=== PATIENT | male | born 1990 | race Caucasian/White ===

== ENCOUNTER 2020-05-03 12:43 | Emergency (ER) | payer SELFPAY ==
[2020-05-03 12:57] VITALS: BP 152/97; PULSE 96; RESP 14; TEMP 36.4; O2SAT 96; BMI 40.8
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
--- NOTE | 2020-05-03 13:15 | XR_ITS ---
PROCEDURE: XR ANKLE RT MIN 3V CLINICAL INDICATION: pt fell Pain COMPARISON: No exams were available for comparison FINDINGS: No fracture or dislocation. No lytic or blastic change. There is normal mineralization. The joint spaces are well-preserved. No significant degenerative/arthritic changes. No erosive changes evident. Other findings:None. IMPRESSION: No acute findings. Dictated by: Dwaine Miranda MD 05/03/2020 14:23 Dwaine Miranda MD in [place] 05/03/2020 14:23
[2020-05-03 14:38] VITALS: BP 150/90; PULSE 91; RESP 16; TEMP 36.7
== END 2020-05-03 14:48 | disposition home or self-care (01) ==
PROVIDERS: Emergency Provider Nurse Practitioner Family
DX: S93.601A Unspecified sprain of right foot, initial encounter (principal); S93.401A Sprain of unspecified ligament of right ankle, initial encounter; W17.89XA Other fall from one level to another, initial encounter; Y92.89 Other specified places as the place of occurrence of the external cause; F17.210 Nicotine dependence, cigarettes, uncomplicated
CPT/HCPCS: 73610; 73630; 99202; G0463

== ENCOUNTER 2020-07-13 14:52 | Emergency (ER) | payer SELFPAY ==
[2020-07-13 14:52] VITALS: BP 169/88; PULSE 55; RESP 16; TEMP 36.6; O2SAT 98; BMI 35.3
[2020-07-13 14:58] VITALS: BMI 38.4
--- NOTE | 2020-07-13 15:01 | HMH.EDGENADL ---
ED Disposition Clinical Impression: Renal colic on left side Disposition: Home, Self-Care Condition on Discharge: Good Additional Instructions: Use urine strainer. Use ibuprofen, with food, for pain. Use Zofran as needed for nausea. Drink plenty of clear fluids. Follow-up with urology/PCP. Return immediately if any intractable nausea/vomiting, worsening pain, fever/chills, generalized malaise, or other new concerning symptoms. Prescriptions: Ondansetron [Zofran 4mg ODT] 4 mg PO TIDP PRN #12 tab PRN Reason: nausea Transmission Status: Received by [facility] Referrals: PCP,No [Primary Care Provider] - - Critical Care Critical Care Time: No Attestation: On , the high probability of a clinically significant, sudden or life threatening deterioration of the following system(s) required my full and direct attention, intervention and personal management. The time I documented below is in addition to time spent performing reported procedures but includes the following listed in this critical care notation. Medical Decision Making - Medical Records Medical records reviewed: Yes: I reviewed the patient's medical records. - Petros Inquiry Pt receiving controlled substance: No Vital Signs: 07/13/20 14:52 07/13/20 16:05 Temperature 97.8 F Temperature Source Oral Pulse Rate 65 Pulse Rate [Radial] 55 L Respiratory Rate 16 Blood Pressure 140/96 H Blood Pressure [Right Arm] 169/88 H Blood Pressure Mean 111 Blood Pressure Mean [Right Arm] 115 Blood Pressure Position [Right Arm] Sitting 02 Sat by Pulse Oximetry 98 98 Oxygen Delivery Method Room Air - Lab Data Lab Results 07/13/20 14:57: Urine Color Yellow, Urine Appearance Clear, Urine pH 6.0, Ur Specific [place] 1.025, Urine Protein Negative, Urine Glucose (UA) Negative, Urine Ketones Negative, Urine Blood 3+, Urine Nitrate Negative, Urine Bilirubin Negative, Urine Urobilinogen 0.2, Ur Leukocyte Esterase Negative, Urine RBC 10-20, Urine WBC 3-5, Ur Squamous Epith Cells 3-5, Urine Bacteria None 07/13/20 15:20: WBC 12.0 H, RBC 5.79, Hgb 17.1, Hct 51.2, MCV 88.4, MCH 29.5, MCHC 33.3, RDW 13.3, Plt Count 174, MPV 8.0, Neut % (Auto) 65.0, Lymph % (Auto) 26.5, [place] % (Auto) 5.0, Eos % (Auto) 2.6, Baso % (Auto) 0.9, Neut # (Auto) 7.8, Lymph # (Auto) 3.2, [place] # (Auto) 0.6, Eos # (Auto) 0.3, Baso # (Auto) 0.1 07/13/20 15:20: Sodium 139, Potassium 4.2, Chloride 107, Carbon Dioxide 28, Anion Gap 8.2, BUN 10, Creatinine 1.20, Estimated Creat Clear 154, Estimated GFR 73, Est GFR ( Amer) 88, Glucose 101 H, Calcium 9.2, Total Bilirubin 0.4, AST 35, ALT 45, Alkaline Phosphatase 110, Total Protein 7.1, Albumin 4.1, Globulin 3.0, Albumin/Globulin Ratio 1.4 07/13/20 15:20: Lipase 112 Result diagrams: 07/13/20 15:20 07/13/20 15:20 Orders (Tests/Meds): ED MEDICATIONS Generic Name Dose Route Start Last Admin Trade Name Freq PRN Reason Stop Dose Admin Lactated Ringer's 1,000 mls @ 999 mls/hr 07/13/20 15:30 07/13/20 15:40 Lactated Ringer's 1000 Ml Bag IV 07/13/20 16:30 999 mls/hr .Q1H1M ASHLEY Administration Discontinued Medications Generic Name Dose Route Start Last Admin Trade Name Freq PRN Reason Stop Dose Admin Ketorolac Tromethamine 15 mg 07/13/20 15:29 07/13/20 15:42 Ketorolac 30mg/Ml Vial IV 07/13/20 15:30 15 mg ONCE ONE Administration Ondansetron HCl 4 mg 07/13/20 15:29 07/13/20 15:40 Ondansetron 4mg/2ml Vial IV 07/13/20 15:30 4 mg ONCE ONE Administration Medical Decision Narrative: Patient 29-year-old male presents with suspected left renal colic. Patient has history of stones and states this feels exactly the same as stones has had in the past without complications of passing. No infection. No fever. No excessive vomiting. Patient given Toradol, Zofran, and a fluid bolus here in the ER. Basic labs to be checked to ensure no renal insufficiency, leukocytosis, or other significant abnormal
[2020-07-13 15:04] LABS: Microscopic, Urine URINE MICROSCOPIC (MICROSCOPIC)
[2020-07-13 15:06] LABS: Appearance,Urine CLEAR (Clear); Bilirubin,Urine Negative (Negative); Blood, Urine 3+ (Negative); Color,Urine YELLOW (Yellow); Glucose,Urine (UA) Negative (Negative); Ketones,Urine Negative (Negative); Leukocyte Esterase,Urine Negative (Negative); Nitrate,Urine Negative (Negative); Protein,Urine Negative (Negative); Specific Gravity, Urine 1.025 (1.005-1.030); Urobilinogen,Urine 0.2 EU/dl (0.2)
[2020-07-13 15:32] LABS: Basophils # 0.1 K/mm3 (0-0.2); Basophils % 0.9 % (0.1-2.0); Eosinophils # 0.3 K/mm3 (0.0-0.4); Eosinophils % 2.6 % (0.1-12.0); Hematocrit 51.2 % (42.0-52.0); Hemoglobin 17.1 g/dL (14.1-18.0); Lymphocytes # 3.2 K/mm3 (0.7-4.5); Lymphocytes % 26.5 % (10-50); Mean Corpuscular HGB Conc 33.3 g/dL (31.8-35.4); Mean Corpuscular Hemoglobin 29.5 pg (27.0-31.2); Mean Corpuscular Volume 88.4 fl (80-94); Monocytes # 0.6 K/mm3 (0.1-1.0); Neutrophils # 7.8 K/mm3 (1.8-7.8); Platelet Count 174 K/mm3 (142-424); Red Blood Count 5.79 M/mm3 (4.60-6.20); Red Cell Distribution Width 13.3 % (11.5-17.5)
[2020-07-13 15:37] LABS: Alanine Aminotransferase 45 U/L (12-78); Albumin Level 4.1 g/dl (3.5-5.0); Albumin/Globulin Ratio 1.4 (1.1-1.8); Alkaline Phosphatase 110 U/L (38-126); Anion Gap 8.2 mEq/L (5-15); Aspartate Amino Transferase 35 U/L (17-59); Bilirubin,Total 0.4 mg/dl (0.2-1.3); Blood Urea Nitrogen 10 mg/dl (9-20); Calcium 9.2 mg/dl (8.4-10.2); Carbon Dioxide 28 mmol/L (22.0-30.0); Chloride 107 mmol/L (98-107); Creatinine Clearance Estimated 154 mL/min (50-200); Estimated Glomerular Filt Rate 73 ml/min (>60); GFR (African American) 88 ML/MIN (>60); Glucose 101 mg/dl (74-100); Potassium 4.2 mmoL/L (3.5-5.1); Sodium 139 mmol/L (136-145); Total Protein,Serum 7.1 g/dl (6.3-8.2)
[2020-07-13 15:45] LABS: Lipase 112 U/L (23-300)
[2020-07-13 16:05] VITALS: BP 140/96; PULSE 65; O2SAT 98
[2020-07-13 16:57] VITALS: BP 155/89; PULSE 89; RESP 16; TEMP 36.6; O2SAT 98
== END 2020-07-13 16:58 | disposition home or self-care (01) ==
PROVIDERS: Emergency Provider Emergency Medicine
DX: N23 Unspecified renal colic (principal); Z87.442 Personal history of urinary calculi; F17.210 Nicotine dependence, cigarettes, uncomplicated
CPT/HCPCS: 80053; 81001; 83690; 85025; 96365; 96375; 99283; J2405

== ENCOUNTER 2021-01-05 12:44 | Emergency (ER) | payer SELFPAY ==
[2021-01-05 13:17] VITALS: BP 151/106; PULSE 108; RESP 16; TEMP 36.8; O2SAT 98; BMI 41.0
[2021-01-05 13:26] LABS: Color,Urine Yellow (Yellow)
[2021-01-05 13:27] LABS: Apearance,Urine Clear (Clear); Bilirubin,Urine Negative (Negative); Blood, Urine 4+ (Negative); Glucose,Urine (UA) Negative (Negative); Ketones,Urine Negative (Negative); Protein,Urine Negative (Negative); Specific Gravity, Urine 1.015 (1.005-1.030); UTC Leukocyte Esterase,Urine Negative (Negative); UTC Nitrate,Urine Negative (Negative); Urobilinogen,Urine 0.2 EU/dl (0.2)
--- NOTE | 2021-01-05 14:02 | HMH.EDUTC ---
[facility] [place] Clinical Impression: Right ureteral calculus Disposition: Home, Self-Care Condition on Discharge: Fair Instructions: DI for Kidney Stones Additional Instructions: Ibuprofen or [place] as needed for pain. Zofran as needed for nausea. Flomax as prescribed. Additional instructions for KIDNEY STONE (URETERAL CALCULUS): See Dr. Orozco as soon as possible for further evaluation. Call for appointment. Drink plenty of fluids. Strain your urine and save any stones you catch. Return immediately if you develop a fever or have uncontrollable vomiting or uncontrollable pain. Additional instructions for CONTROLLED SUBSTANCES: You have been prescribed a medication that is a controlled substance. Controlled substances include pain medications known as opiates and sedative nerve medications known as benzodiazepines. Tramadol, fioricet, and gabapentin are also controlled substances. Some common opiates include: Codeine (such as Tylenol #3) Hydrocodone (Vicodin, Lortab, Lorcet, [place]) Oxycodone (Percocet, Percodan, Oxycodone, Oxy IR) Some common benzodiazepines include: Diazepam (Valium) Lorazepam (Ativan) Alprazolam (Xanax) Clonazepam (Klonopin) Oxazepam (Serax) All of these controlled substances are highly addictive and frequently abused. Misuse can and frequently does lead to addiction as well as overdose and . Medication should be stored in a locked cabinet or other secure storage unit. Do not store the medication in a motor vehicle. Short term supplies, 3 days or less, are prescribed because of the highly addictive nature of the medication. Any of the controlled substance medication NOT taken should be disposed of properly and NOT SAVED. The recommended method of disposing of unused medications is: Place the medicines in a sealable plastic bag. If the medicine is a solid, crush it or add water to dissolve it. Add something undesirable (cat litter, coffee grounds, etc.) Dispose of sealed bag in household trash Do not flush or pour unused medicines down a sink or drain. Controlled substances should not be shared, given away or sold. Because of the addictive nature and frequent abuse, these medications are sometimes stolen. These medications should be kept in a safe place where they cannot be stolen. Do not keep them in your car or purse. Lost or stolen prescriptions for controlled substances WILL NOT BE REFILLED in this emergency department, regardless of whether a police report was filed. Prescriptions: Hydrocod/Acet 5/325 mg [[place] 5/325mg tablet] 1 tab PO Q6HP PRN #10 tab PRN Reason: Pain Transmission Status: Received by [facility] Ibuprofen [Ibuprofen 800mg Tablet] 800 mg PO Q8HP PRN #15 tab PRN Reason: Moderate Pain Transmission Status: Received by [facility] Tamsulosin HCl [Flomax 0.4mg capsule] 0.4 mg PO HS #10 cap Transmission Status: Received by [facility] Ondansetron [Zofran 4mg ODT] 4 mg PO TIDP PRN #10 tab PRN Reason: Nausea And Vomiting Transmission Status: Received by [facility] Referrals: Provider,MD Pepe [Primary Care Provider] - Reggie Orozco MD [Staff Physician] - Time of Disposition: 14:10 Medical Decision Making - Medical Records Medical records reviewed: No: I reviewed the patient's medical records. - Petros Inquiry Pt receiving controlled substance: No Vital Signs: 01/05/21 13:17 01/05/21 14:45 01/05/21 15:30 Temperature 98.2 F 98.4 F Temperature Source Oral Oral Pulse Rate Pulse Rate [Left] 108 H 71 87 Respiratory Rate 16 18 16 Blood Pressure Blood Pressure [Right Arm] 151/106 H 138/107 H 162/103 H Blood Pressure Mean [Right Arm] 121 117 122 Blood Pressure Source Blood Pressure Source [Right Arm] Automatic Cuff Blood Pressure Position Blood Pressure Position [Right Arm] Sitting 02 Sat by Pulse Oximetry 98 97 98 Oxygen Delivery Method Room Air Room Air
[2021-01-05 14:26] LABS: Alanine Aminotransferase 40 U/L (12-78); Albumin Level 4.1 g/dl (3.5-5.0); Albumin/Globulin Ratio 1.2 (1.1-1.8); Alkaline Phosphatase 108 U/L (38-126); Amylase 91 U/L (30-110); Anion Gap 11.2 mEq/L (5-15); Aspartate Amino Transferase 34 U/L (17-59); Bilirubin,Total 0.4 mg/dl (0.2-1.3); Blood Urea Nitrogen 6 mg/dl (9-20); Calcium 9.1 mg/dl (8.4-10.2); Carbon Dioxide 27 mmol/L (22.0-30.0); Chloride 105 mmol/L (98-107); Creatinine Clearance Estimated 272 mL/min (50-200); Estimated Glomerular Filt Rate 134 ml/min (>60); GFR (African American) 162 ML/MIN (>60); Globulin 3.5 g/dL (1.3-3.2); Glucose 100 mg/dl (74-100); Lipase 108 U/L (23-300); Potassium 4.2 mmoL/L (3.5-5.1); Sodium 139 mmol/L (136-145); Total Protein,Serum 7.6 g/dl (6.3-8.2)
[2021-01-05 14:39] LABS: Basophils # 0.1 K/mm3 (0-0.2); Basophils % 1.2 % (0.1-2.0); Eosinophils # 0.4 K/mm3 (0.0-0.4); Eosinophils % 3.1 % (0.1-12.0); Hematocrit 54.6 % (42.0-52.0); Lymphocytes # 3.7 K/mm3 (0.7-4.5); Lymphocytes % 31.6 % (10-50); Mean Corpuscular HGB Conc 33.1 g/dL (31.8-35.4); Mean Corpuscular Hemoglobin 30.3 pg (27.0-31.2); Mean Corpuscular Volume 91.8 fl (80-94); Mean Platelet Volume 8.2 fl (7.4-10.4); Monocytes # 0.5 K/mm3 (0.1-1.0); Monocytes % 4.3 % (1.7-9.3); Neutrophils % 59.8 % (37.0-80.0); Platelet Count 229 K/mm3 (142-424); Red Blood Count 5.95 M/mm3 (4.60-6.20); Red Cell Distribution Width 13.3 % (11.5-17.5); White Blood Count 11.7 K/mm3 (4.8-10.8)
[2021-01-05 14:42] LABS: Hemoglobin 18.1 g/dL (14.1-18.0)
[2021-01-05 14:45] VITALS: BP 138/107; PULSE 71; RESP 18; TEMP 36.9; O2SAT 97; BMI 38.7
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
[2021-01-05 14:59] LABS: Microscopic, Urine URINE MICROSCOPIC (MICROSCOPIC)
[2021-01-05 15:01] LABS: Appearance,Urine SL CLOUDY (Clear); Bilirubin,Urine Negative (Negative); Blood, Urine 3+ (Negative); Color,Urine YELLOW (Yellow); Glucose,Urine (UA) Negative (Negative); Ketones,Urine Negative (Negative); Leukocyte Esterase,Urine Negative (Negative); Nitrate,Urine Negative (Negative); Protein,Urine Negative (Negative); Urobilinogen,Urine 0.2 EU/dl (0.2)
--- NOTE | 2021-01-05 15:10 | HMH.EDGENADL ---
ED Disposition Clinical Impression: Right ureteral calculus Disposition: Home, Self-Care Condition on Discharge: Good Instructions: DI for Kidney Stones Additional Instructions: Ibuprofen or [place] as needed for pain. Zofran as needed for nausea. Flomax as prescribed. Additional instructions for KIDNEY STONE (URETERAL CALCULUS): See Dr. Orozco as soon as possible for further evaluation. Call for appointment. Drink plenty of fluids. Strain your urine and save any stones you catch. Return immediately if you develop a fever or have uncontrollable vomiting or uncontrollable pain. Additional instructions for CONTROLLED SUBSTANCES: You have been prescribed a medication that is a controlled substance. Controlled substances include pain medications known as opiates and sedative nerve medications known as benzodiazepines. Tramadol, fioricet, and gabapentin are also controlled substances. Some common opiates include: Codeine (such as Tylenol #3) Hydrocodone (Vicodin, Lortab, Lorcet, [place]) Oxycodone (Percocet, Percodan, Oxycodone, Oxy IR) Some common benzodiazepines include: Diazepam (Valium) Lorazepam (Ativan) Alprazolam (Xanax) Clonazepam (Klonopin) Oxazepam (Serax) All of these controlled substances are highly addictive and frequently abused. Misuse can and frequently does lead to addiction as well as overdose and . Medication should be stored in a locked cabinet or other secure storage unit. Do not store the medication in a motor vehicle. Short term supplies, 3 days or less, are prescribed because of the highly addictive nature of the medication. Any of the controlled substance medication NOT taken should be disposed of properly and NOT SAVED. The recommended method of disposing of unused medications is: Place the medicines in a sealable plastic bag. If the medicine is a solid, crush it or add water to dissolve it. Add something undesirable (cat litter, coffee grounds, etc.) Dispose of sealed bag in household trash Do not flush or pour unused medicines down a sink or drain. Controlled substances should not be shared, given away or sold. Because of the addictive nature and frequent abuse, these medications are sometimes stolen. These medications should be kept in a safe place where they cannot be stolen. Do not keep them in your car or purse. Lost or stolen prescriptions for controlled substances WILL NOT BE REFILLED in this emergency department, regardless of whether a police report was filed. Prescriptions: Hydrocod/Acet 5/325 mg [[place] 5/325mg tablet] 1 tab PO Q6HP PRN #10 tab PRN Reason: Pain Transmission Status: Sent to [facility] Ibuprofen [Ibuprofen 800mg Tablet] 800 mg PO Q8HP PRN #15 tab PRN Reason: Moderate Pain Transmission Status: Pending to [facility] Tamsulosin HCl [Flomax 0.4mg capsule] 0.4 mg PO HS #10 cap Transmission Status: Pending to [facility] Ondansetron [Zofran 4mg ODT] 4 mg PO TIDP PRN #10 tab PRN Reason: Nausea And Vomiting Transmission Status: Pending to [facility] Referrals: Provider,MD Pepe [Primary Care Provider] - Reggie Orozco MD [Staff Physician] - - Critical Care Critical Care Time: No Attestation: On 01/05/21, the high probability of a clinically significant, sudden or life threatening deterioration of the following system(s) required my full and direct attention, intervention and personal management. The time I documented below is in addition to time spent performing reported procedures but includes the following listed in this critical care notation. Medical Decision Making - Medical Records Medical records reviewed: Yes: I reviewed the patient's medical records. MR Comment: Reviewed emergency department visit 07/13/2020 at this facility for kidney stone symptoms. Diagnosed with renal colic. He had hematuria, no imaging performed. - Petros Inquiry Pt receiving controlled subst
[2021-01-05 15:12] LABS: Bacteria,Urine 1+ /lpf; RBC,Urine 20-50 #/hpf (0-3)
[2021-01-05 15:30] VITALS: BP 162/103; PULSE 87; RESP 16; O2SAT 98
[2021-01-05 16:06] VITALS: BP 119/60; PULSE 87; RESP 16; TEMP 36.9; O2SAT 98
== END 2021-01-05 16:07 | disposition home or self-care (01) ==
LOC: UTC 14:10 → ER 14:40
PROVIDERS: Emergency Medicine; Emergency Provider Nurse Practitioner Family
DX: N20.1 Calculus of ureter (principal); Z87.442 Personal history of urinary calculi; F17.210 Nicotine dependence, cigarettes, uncomplicated
CPT/HCPCS: 74176; 80053; 81001; 81003; 82150; 83690; 85025; 96365; 96375; 99283

== ENCOUNTER 2022-06-30 09:33 | Emergency (ER) | payer SELFPAY ==
[2022-06-30 09:34] VITALS: BP 141/89; PULSE 92; RESP 20; TEMP 36.6; O2SAT 98; BMI 40.1
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
[2022-06-30 10:43] VITALS: BP 141/89; PULSE 92; RESP 20; TEMP 36.6; O2SAT 98
== END 2022-06-30 10:43 | disposition home or self-care (01) ==
PROVIDERS: Emergency Provider Nurse Practitioner Family
DX: T59.811A Toxic effect of smoke, accidental (unintentional), initial encounter (principal); R07.81 Pleurodynia; F17.200 Nicotine dependence, unspecified, uncomplicated
CPT/HCPCS: 71046; 99212; 99214; G0463

== ENCOUNTER 2023-02-04 09:41 | Emergency (ER) | payer SELFPAY ==
[2023-02-04 09:50] VITALS: BP 129/90; PULSE 89; RESP 18; TEMP 36.6; O2SAT 96; BMI 40.1
--- NOTE | 2023-02-04 09:50 | EXP.UTC ---
Discharge Plan Disposition Patient Disposition: Home, Self-Care Condition: Good Prescriptions Prescriptions: New methylprednisolone 4 mg Tablets,Dose Pack 4 mg PO DIRECTED Qty: 21 0RF Referrals Follow up/Referrals: Provider,Referral, [Primary Care Provider] - See instructions Heather Carmona DPM [Staff Physician] - See instructions Activity Restrictions/Add. Instructions Additional Instructions/Restrictions: Rest the extremity, Elevate the extremity as tolerated while you are resting. Don't start the oral steroids until tomorrow, since you had the shot here today. Follow up with Dr. Carmona (podiatry) if you continue to have symptoms. I put in a referral but you need to call her office and schedule an appointment. Follow up with your regular doctor. GO TO THE ER FOR ANY WORSENING SYMPTOMS Clinical Impressions Clinical Impression: Exacerbation of gout, Left foot pain Stand Alone Forms Stand Alone Forms: Work/School Release Instructions Patient Instructions: Gout, DI for Gout, Methylprednisolone Injection, Ketorolac Injection Discharge ED Provider: Franki Thomson [facility] General Stated complaint: pain in Lt foot, no accident Time Seen by Provider: 02/04/23 09:50 History of Present Illness Provider Complaint: He c/o left foot pain for the past 3 days. He has a history of gout. he states that this feels like his normal gout flare up. Related Data Previous Rx's Medication Instructions Recorded methylprednisolone 4 mg tablets in 4 mg PO DIRECTED #21 tabs 02/04/23 a dose pack Allergies Allergy/AdvReac Type Severity Reaction Status Date / Time No Known Allergies Allergy Verified 02/04/23 09:[address] [facility] Disclaimer: The information contained in this section may have been updated after the patient was seen, as this information can be updated by other users. Social History Smoking Status: Current some day smoker tobacco type: cigarettes packs per day: 0 alcohol intake: never current occupational status: employed Travel in the last 8 weeks: None ROS Obtained: Yes All systems reviewed & no additional complaints except as documented Constitutional Constitutional: Denies chills and Denies fever(s) Eyes Eyes: Denies eye discharge ENT Ears, Nose, Mouth, and Throat: Denies dizziness, Denies otalgia and Denies sore throat Cardiovascular Cardiovascular: Denies chest pain Respiratory Respiratory: Denies shortness of breath, Denies chest congestion, Denies cough, Denies stridor and Denies wheezing Gastrointestinal Gastrointestingal: Denies nausea or vomiting Musculoskeletal Musculoskeletal: Reports as per HPI Integumentary/Breasts Skin/Breast: Denies rash Neurologic Neurologic: Denies dizziness and Denies paresthesias Allergic/Immunologic Allergic/Immunologic: Denies wheezing Physical Exam General General appearance: alert and in no apparent distress Head Head exam: atraumatic, normocephalic and normal inspection Eye Eye exam: Present normal appearance, PERRL and EOMI ENT ENT exam: Present normal exam, normal oropharynx, mucous membranes moist, TM's normal bilaterally and normal external ear exam Neck Neck exam: Present normal inspection, full ROM and trachea midline; Absent meningismus or lymphadenopathy Chest Chest inspection: Present normal inspection and symmetric chest wall rise; Absent tenderness Respiratory Respiratory exam: Present normal lung sounds bilaterally; Absent respiratory distress Cardiovascular Cardiovascular exam: Present regular rate and normal rhythm; Absent JVD Abdominal Exam Abdominal exam: Present soft and normal bowel sounds; Absent distention, tenderness or guarding Extremities Exam Extremities exam: Present normal capillary refill; Absent calf tenderness Expanded Lower Extremity Exam Left: Knee exam: Present normal inspection and full ROM; Absent tenderness Lower leg exam: Pre
[2023-02-04 10:55] VITALS: BP 129/90; PULSE 89; RESP 18; TEMP 36.6; O2SAT 96
== END 2023-02-04 10:53 | disposition home or self-care (01) ==
PROVIDERS: Emergency Provider Nurse Practitioner Family
DX: M10.072 Idiopathic gout, left ankle and foot (principal); M79.672 Pain in left foot; F17.210 Nicotine dependence, cigarettes, uncomplicated
CPT/HCPCS: 96372; 99212; 99214; G0463

== ENCOUNTER 2023-04-07 10:51 | Outpatient (CLI) | payer SELFPAY ==
[2023-04-07 19:50] VITALS: BMI 42.6
== END 2023-04-07 11:51 | disposition home or self-care (01) ==
LOC: UTC.OUT 10:53
PROVIDERS: Visit Provider Nurse Practitioner Family
DX: Z02.4 Encounter for examination for driving license (principal)